=== PATIENT | male | born 1965 | race African-American/Black ===

== ENCOUNTER 2018-09-27 07:08 | Emergency (ER) | payer BC ==
[2018-09-27 07:18] VITALS: BP 131/80
[2018-09-27] MEDS ORDERED: DIPH/PERTUSS(ACELL)/TETANUS VAC/PF 0.5 ML SYR (>=10YO) IM ONE (07:33)
[2018-09-27] MEDS ORDERED: LIDOCAINE 1%/EPINEPHRINE INJ 20 ML VIAL INJ ONE (07:33)
[2018-09-27] MEDS ORDERED: HYDROCODONE/ACETAMINOPHEN 5-325 MG TABLET PO ONE (07:33)
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
--- NOTE | 2018-09-27 08:38 | RADIOLOGY REPORT (SQ) ---
EXAM DESCRIPTION: TIBIA FIBULA RIGHT COMPLETED DATE/TIME: 09/27/2018 7:47 am REASON FOR STUDY: leg lac, ?FB COMPARISON: None. NUMBER OF VIEWS: Two views. TECHNIQUE: Two radiographic images acquired of the right tibia and fibula to include the knee and an kle in at least one projection. LIMITATIONS: None. FINDINGS: MINERALIZATION: Normal. BONES: No acute fracture or dislocation. No worrisome bone lesions. SOFT TISSUES: Laceration posterior aspect popliteal fossa. No foreign body identified. OTHER: No other significant finding. IMPRESSION: No foreign body identified. TECHNICAL DOCUMENTATION: JOB ID: [id number] [employer]- All Rights Reserved Reading location - IP/workstation name: [email or web address]
[2018-09-27] MEDS ORDERED: CLINDAMYCIN HCL 150 MG CAPSULE PO ONE (09:05)
== END 2018-09-27 09:55 | disposition home or self-care (01) ==
LOC: ER 07:08
DX: S81.812A Laceration without foreign body, left lower leg, initial encounter (principal); W25.XXXA Contact with sharp glass, initial encounter; F17.200 Nicotine dependence, unspecified, uncomplicated; I10 Essential (primary) hypertension
CPT/HCPCS: 99283; 90471; 73590; 90715; 12004; J3490

== ENCOUNTER 2018-10-25 17:21 | Emergency (ER) | payer BC ==
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
[2018-10-25 19:05] VITALS: BP 121/76
== END 2018-10-25 19:06 | disposition home or self-care (01) ==
LOC: ER 17:21
DX: Z48.02 Encounter for removal of sutures (principal); F17.200 Nicotine dependence, unspecified, uncomplicated; I10 Essential (primary) hypertension